=== PATIENT | male | born 2000 | race Caucasian/White ===

== ENCOUNTER 2021-06-18 12:56 | Emergency (ER) | payer OTHER, SELFPAY ==
[~2021-06-18] VITALS: Ht 170.2 cm; Wt 108.0 kg
[2021-06-18 13:12] VITALS: BP 159/84
--- NOTE | 2021-06-18 14:06 | NUR ---
[facility] BEDSIDE EVALUATING PT
[2021-06-18] MEDS ORDERED: KETOROLAC 30 MG/ML VIAL IM ONE (14:15)
[2021-06-18] MEDS ORDERED: ONDANSETRON 4 MG/2 ML VIAL IVP ONE (14:15)
[2021-06-18] MEDS ORDERED: NACL 0.9% 1,000 ML IV ONE (14:15)
[2021-06-18] MEDS ORDERED: KETOROLAC 30 MG/ML VIAL IVP ONE (14:15)
--- NOTE | 2021-06-18 14:27 | NUR ---
XRAY AT BEDSIDE
--- NOTE | 2021-06-18 14:31 | NUR ---
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
--- NOTE | 2021-06-18 14:54 | NUR ---
pt provided with urinal bedside to obtain UA
[2021-06-18] MEDS ORDERED: IBUP-2218 PO (15:27)
--- NOTE | 2021-06-18 15:45 | NUR ---
Patient appears to be resting comfortably in bed. Vital Signs within normal limits. Respirations even and unlabored.
[2021-06-18 15:55] VITALS: BP 116/66
--- NOTE | 2021-06-18 15:56 | NUR ---
Patient discharged with v/s stable. Written and verbal after care instructions given and explained. Patient alert, oriented and verbalized understanding of instructions. Ambulatory with steady gait. All questions addressed prior to discharge. ID band removed. Patient advised to follow up with PMD. Rx of ibuprofen (sent) given. Patient educated on indication of medication including possible reaction and side effects. Opportunity to ask questions provided and answered.
== END 2021-06-18 15:55 | disposition home or self-care (01) ==
LOC: MED 12:56
DX: B34.9 Viral infection, unspecified (principal); Z20.822 Contact with and (suspected) exposure to COVID-19; R03.0 Elevated blood-pressure reading, without diagnosis of hypertension; E86.0 Dehydration; R51.9 Headache, unspecified; Z79.899 Other long term (current) drug therapy
CPT/HCPCS: 71045; 81002; 87426; 93005; 96361; 96374; 96375; 99285; J1885; J2405; J7030; Q0092